=== PATIENT | female | born 1960 | race Caucasian/White ===

== ENCOUNTER 2021-06-23 09:38 | Observation (INO) ==
[2021-06-23] MEDS ORDERED: 0.9 % Sodium Chloride 1,000 ML IVC ONE (12:57)
[2021-06-23 13:28] LABS: Amorphous Sediment,Urine Few per hpf (None-Few); Bacteria,Urine Few per hpf (None-Few); Bilirubin,Urine Negative (Negative); Blood,Urine Moderate (Negative); Clarity,Urine Turbid (Clear); Color,Urine Dark-Yellow (Yellow); Glucose,Urine (UA) Normal (Normal); Ketones,Urine Negative (Negative); Leukocyte Esterase,Urine Small (Negative); Nitrite,Urine Negative (Negative); Protein,Urine 50 mg/dL (Neg-Trace); Specific Gravity,Urine 1.011 (1.010-1.025); Squamous Epithelial Cell,Urine Moderate per hpf (None-Few); Urobilinogen,Urine Normal (Normal); WBC,Urine 15-30 per hpf (0-3)
[2021-06-23 14:40] LABS: Basophils % 0.2 %; Hemoglobin 12.8 g/dL (11.5-15.4)
[2021-06-23 14:42] LABS: Eosinophils # 0.1 K/mcL (0.0-0.6); Eosinophils % 0.8 %; Hematocrit 39.4 % (35.3-44.9); Immature Platelets 6.2 % (1.1-6.1); Lymphocytes # 1.2 K/mcL (0.6-4.6); Lymphocytes % 8.2 %; Mean Corpuscular HGB Conc 32.5 g/dL (31.6-35.5); Mean Corpuscular Hemoglobin 28.3 pg (28.0-33.3); Mean Platelet Volume 10.6 fL (9.4-12.4); Monocytes # 1.3 K/mcL (0.0-1.3); Monocytes % 9.2 %; Neutrophils # 11.3 K/mcL (1.6-8.9); Platelet Count 131 K/mcL (140-400); Red Blood Count 4.53 M/mcL (3.82-4.97); Red Cell Distribution Width 14.4 % (11.5-14.5); Segmented Neutrophils % 80.6 %
[2021-06-23 15:00] LABS: Albumin 3.4 g/dL (3.5-5.7); Albumin/Globulin Ratio 0.9 (1.1-2.2); Bilirubin,Direct 0.5 mg/dL (0.0-0.2); Bilirubin,Indirect 0.5 mg/dL (0.0-1.0); Globulin 3.7 g/dL (2.4-3.5); Potassium 3.6 mEq/L (3.5-5.1); Total Protein 7.1 g/dL (6.4-8.9)
[2021-06-23] MEDS ORDERED: Morphine Sulfate 2 MG/ML SYRINGE IVP ONE (16:41)
[2021-06-23] MEDS ORDERED: cefTRIAXone 1,000 MG in 0.9 % Sodium Chloride Mini Bag 100 ML IVPB ONE (16:41)
[2021-06-23] MEDS ORDERED: Morphine Sulfate 2 MG/ML SYRINGE IVP PRN (17:24)
[2021-06-23] MEDS ORDERED: Naloxone 0.4 MG/ML INJ IVP PRN (17:39)
[2021-06-23] MEDS ORDERED: Ondansetron 4 MG/2 ML VIAL IVP PRN (17:39)
[2021-06-23] MEDS: 0.9 % Sodium Chloride 1,000 ML IVC SCH (19:10)
[2021-06-24 00:55] LABS: Red Cell Distribution Width 14.6 % (11.5-14.5)
[2021-06-24 01:00] LABS: Basophils % 0.3 %; Mean Corpuscular Hemoglobin 27.8 pg (28.0-33.3)
[2021-06-24 01:02] LABS: Eosinophils # 0.1 K/mcL (0.0-0.6); Hematocrit 34.2 % (35.3-44.9); Immature Granulocytes % 2.1 % (0-4); Immature Platelets 5.7 % (1.1-6.1); Lymphocytes # 1.2 K/mcL (0.6-4.6); Lymphocytes % 9.2 %; Mean Corpuscular HGB Conc 32.2 g/dL (31.6-35.5); Mean Corpuscular Volume 86.4 fL (83.0-100.0); Mean Platelet Volume 11.1 fL (9.4-12.4); Monocytes # 1.2 K/mcL (0.0-1.3); Monocytes % 9.8 %; Platelet Count 132 K/mcL (140-400); Red Blood Count 3.96 M/mcL (3.82-4.97); Segmented Neutrophils % 77.6 %; White Blood Count 12.6 K/mcL (4.3-11.1)
[2021-06-24 01:16] LABS: Calcium 8.1 mg/dL (8.6-10.3); Neutrophils # 9.8 K/mcL (1.6-8.9); Potassium 3.5 mEq/L (3.5-5.1)
[2021-06-24] MEDS: 0.9 % Sodium Chloride 1,000 ML IVC SCH (05:06)
[2021-06-24] MEDS ORDERED: *HR* Midazolam HCl 2 MG/2 ML VIAL ONE (08:26)
[2021-06-24] MEDS ORDERED: *HR* Propofol 200 MG/20 ML VIAL IVP ONE (08:26)
[2021-06-24] MEDS ORDERED: Lidocaine -MPF 2% 5 ML VIAL ONE (08:28)
[2021-06-24] MEDS ORDERED: *HR* FentaNYL (PF) 100 MCG/2 ML VIAL IVP PRN (08:28)
[2021-06-24] MEDS ORDERED: Ondansetron 4 MG/2 ML VIAL ONE (08:28)
[2021-06-24] MEDS ORDERED: Ondansetron 4 MG/2 ML VIAL IVP PRN ×2 (08:28→10:31)
[2021-06-24] MEDS ORDERED: Ketamine *HR* 500 MG/10 ML MDV ONE (08:40)
[2021-06-24] MEDS ORDERED: cefTRIAXone 1,000 MG in 0.9 % Sodium Chloride 10 ML IVPB SCH (09:00)
[2021-06-24] MEDS ORDERED: cefTRIAXone 1,000 MG in 0.9 % Sodium Chloride 10 ML IVP SCH (09:00)
[2021-06-24] MEDS ORDERED: Metoprolol XL (24 HR) Succ 50 MG TAB.ER.24H PO SCH (09:00)
[2021-06-24] MEDS ORDERED: 0.9 % Sodium Chloride 1,000 ML IVC SCH (10:31)
[2021-06-24] MEDS ORDERED: Morphine Sulfate 2 MG/ML SYRINGE IVP PRN (10:31)
[2021-06-24] MEDS ORDERED: Naloxone 0.4 MG/ML INJ IVP PRN (10:31)
[2021-06-25 01:05] LABS: Basophils % 0.3 %; Eosinophils % 0.1 %; Hematocrit 33.3 % (35.3-44.9); Hemoglobin 10.9 g/dL (11.5-15.4); Immature Granulocytes % 4.7 % (0-4); Lymphocytes # 1.3 K/mcL (0.6-4.6); Lymphocytes % 10.5 %; Mean Corpuscular HGB Conc 32.7 g/dL (31.6-35.5); Mean Corpuscular Hemoglobin 28.4 pg (28.0-33.3); Mean Corpuscular Volume 86.7 fL (83.0-100.0); Mean Platelet Volume 10.7 fL (9.4-12.4); Monocytes # 0.9 K/mcL (0.0-1.3); Monocytes % 7.4 %; Platelet Count 158 K/mcL (140-400); Red Blood Count 3.84 M/mcL (3.82-4.97); Red Cell Distribution Width 14.9 % (11.5-14.5)
[2021-06-25 01:08] LABS: Neutrophils # 9.2 K/mcL (1.6-8.9)
[2021-06-25 01:25] LABS: Calcium 8.3 mg/dL (8.6-10.3)
[2021-06-25 01:29] LABS: Platelet Estimate Normal (Normal); Smudge Cells Present (Not Present)
[2021-06-25] MEDS: Metoprolol XL (24 HR) Succ 50 MG TAB.ER.24H PO SCH (10:03)
[2021-06-25] MEDS: cefTRIAXone 1,000 MG in 0.9 % Sodium Chloride 10 ML IVP SCH (10:05)
[2021-06-26 02:15] LABS: Basophils # 0.1 K/mcL (0.0-0.2); Basophils % 0.5 %; Eosinophils # 0.1 K/mcL (0.0-0.6); Eosinophils % 0.6 %; Hematocrit 34.4 % (35.3-44.9); Hemoglobin 10.9 g/dL (11.5-15.4); Immature Granulocytes % 2.5 % (0-4); Lymphocytes # 2.5 K/mcL (0.6-4.6); Mean Corpuscular HGB Conc 31.7 g/dL (31.6-35.5); Mean Corpuscular Hemoglobin 28.2 pg (28.0-33.3); Mean Corpuscular Volume 88.9 fL (83.0-100.0); Mean Platelet Volume 10.3 fL (9.4-12.4); Monocytes # 1.4 K/mcL (0.0-1.3); Monocytes % 11.5 %; Neutrophils # 8.2 K/mcL (1.6-8.9); Platelet Count 182 K/mcL (140-400); Red Blood Count 3.87 M/mcL (3.82-4.97); Red Cell Distribution Width 15.4 % (11.5-14.5); Segmented Neutrophils % 64.9 %; White Blood Count 12.6 K/mcL (4.3-11.1)
[2021-06-26 02:34] LABS: Calcium 8.6 mg/dL (8.6-10.3); Potassium 3.6 mEq/L (3.5-5.1)
[2021-06-26 06:59] VITALS: BP 145/75; PULSE 80; TEMP 97.7; O2SAT 97
[2021-06-26] MEDS: cefTRIAXone 1,000 MG in 0.9 % Sodium Chloride 10 ML IVP SCH (07:31)
[2021-06-26] MEDS: Metoprolol XL (24 HR) Succ 50 MG TAB.ER.24H PO SCH (07:31)
== END 2021-06-26 10:05 | disposition home or self-care (01) ==
LOC: EMEROOARM 09:38 → 2ANU 09:38 → SUATTDRO 17:10 → 2ANU 18:41
PROVIDERS: ADMIT Family Medicine; ATTEND Family Medicine